=== PATIENT | female | born 1960 | race Caucasian/White ===

== ENCOUNTER → 2018-10-23 | Day surgery (SDC) | payer OTHER ==
[~2018-10-23] MED LIST: COREG3.125 MG PO; ESTRADIOL1 MG PO; FENTANYL CITRATE/PF 100MCG/2 ML INJ ONE; GABAPENTIN400 MG PO; HYOSCYAMINE SULFATE 0.5 MG/ML INJ ONE; LIDOCAINE HCL 2% LOCAL INJ 5 ML SDV VIAL INJ ONE; METOCLOPRAMIDE HCL 10 MG/2ML VIAL ONE; MIDAZOLAM HCL 2 MG/2 ML VIAL ONE; PRILOSEC40 MG PO; PROPOFOL IV EMULSION 10 MG/ML 50 ML VIAL ONE; XANAX0.5 MG PO
--- OUTSIDE RECORDS SUMMARY | 2018-10-23 06:13 | XMS REPORT | Clinical Summary ---
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 Pt is not allergic to latex Other Itching Low 05/29/2018 Abdominal pain and skin itch Sulfanilamide Itching High Medications End Date Status Medication Sig Dispensed Refills Start Date Active estradiol (ESTRACE) 1 MG Take 1 mg by 7 tablet mouth once 7 daily. Active HYDROcodone-acetaminophen 0 (NORCO) 10-325 mg per 8 tablet Active carvedilol (COREG) 6.25 TAKE 1 TABLET 180 tablet 2 201 MG tablet BY MOUTH 9 TWICE A DAY WITH FOOD Active gabapentin (NEURONTIN) TAKE 1 90 capsule 1 100 mg capsule CAPSULE BY 9 MOUTH THREE TIMES A DAY 02/07/2018 Discontinued carvedilol (COREG) 6.25 TAKE 1 TABLET 180 tablet 3 MG tablet (6.25MG) BY [address] 2 TIMES EVERY DAY WITH FOOD 05/08/2018 Discontinued carvedilol (COREG) 6.25 TAKE 1 TABLET 180 tablet 0 201 MG tablet BY MOUTH 8 TWICE A DAY WITH FOOD 08/03/2018 Discontinued carvedilol (COREG) 6.25 TAKE 1 TABLET 180 tablet 0 MG tablet BY MOUTH 8 TWICE A DAY WITH FOOD 05/29/2018 Discontinued acetaminophen-codeine Take 1-2 30 tablet 0 (TYLENOL WITH CODEINE #3) tablets by 8 300-30 mg per mouth every 4 tabletIndications: SLAP (four) hours lesion, type II, right, as needed for initial encounter, moderate pain Rotator cuff tendinitis, for up to 5 right days. 09/24/2018 Discontinued gabapentin (NEURONTIN) Take 1 90 capsule 1 100 mg capsule capsule (100 9 mg total) by mouth 3 (three) times a day. Active Problems Problem Noted Date Tendinitis of right shoulder 05/29/2018 Overview: Added automatically from request for surgery [id number] Superior glenoid labrum lesion of right shoulder 05/29/2018 Overview: Added automatically from request for surgery [id number] Encounters Care Team Description Date Type Specialty Iraj Chopra MD Partial tear of right rotator cuff (Primary Dx); Biceps tendinitis of right shoulder 09/30/2018 Office Visit Orthopedic Surgery Iraj Chopra MD 09/24/2018 Refill Orthopedic Surgery Amber Mahoney MA 09/22/2018 Telephone Orthopedic Surgery Iraj Chopra MD Partial tear of right rotator cuff (Primary Dx); Anterior capsular instability of right shoulder; History of repair of right rotator cuff 09/18/2018 Office Visit Orthopedic Surgery Iraj Chopra MD Partial tear of right rotator cuff (Primary Dx); Anterior capsular instability of right shoulder; SLAP lesion, type II, right, subsequent encounter 08/28/2018 Office Visit Orthopedic Surgery Farhat Lawson MD Med Refill 08/03/2018 Refill Cardiology Iraj Chopra MD Partial tear of right rotator cuff (Primary Dx); Anterior capsular instability of right shoulder; SLAP lesion, type II, right, subsequent encounter; Cervical arthritis 07/31/2018 Office Visit Orthopedic Surgery Iraj Chopra MD Partial tear of right rotator cuff (Primary Dx); Anterior capsular instability of right shoulder 07/03/2018 Office Visit Orthopedic Surgery Farhat Lawson MD Paroxysmal VT (HCC) (Primary Dx); Premature ventricular beats; Syncope, unspecified syncope type; Mitral valve prolapse 06/06/2018 Office Visit Cardiology Iraj Chopra MD Partial tear of right rotator cuff (Primary Dx); Anterior capsular instability of right shoulder 06/05/2018 Office Visit Orthopedic Surgery Milly Hirsch MA 06/05/2018 Orders Only Cardiology Silviano Pina MD PhD Palpitations (Primary Dx); Syncope, unspecified syncope type 06/04/2018 Office Visit Cardiology Adrianna Orellana RN 06/03/2018 Telephone Anesthesiology Carolina Rojas FNP 06/02/2018 Anesthesia General Surgery Event Iraj Chopra MD Right arthroscopic anterior capsular plication, posterior, subacromial decompression, rotator cuff repair. 06/02/2018 Surgery General Surgery Iraj Chopra MD 06/02/2018 Hospital General Surgery Encounter Iraj Chopra MD Preop testing (Primary Dx) 05/29/2018 Pre-Admit Pre-Admission Testing Testing Appointment Iraj Chopra MD SLAP lesion, type II, right, initial encounter (Primary Dx); Rotator cuff tendinitis, right 05/29/2018 Office Visit Orthopedic Surgery Iraj Chopra MD Tendinitis of right shoulder (Primary Dx); Superior glenoid labrum lesion of right shoulder, initial encounter 05/29/2018 Transcribe Orthopedic Surgery Orders Alan Saravia MD 05/28/2018 Orders Only Cardiology Ruby Mcclain RN Med Refill 05/27/2018 Refill Cardiology Ruby Mcclain RN Paroxysmal atrial fibrillation (HCC) (Primary Dx) 05/26/2018 Orders Only Cardiology Nayan Weber MA Results (Event Monitor) 05/09/2018 Telephone Cardiology Farhat Lawson MD Med Refill 05/08/2018 Refill Cardiology Iraj Chopra MD Acute pain of right shoulder (Primary Dx); Impingement syndrome of right shoulder; Complete tear of right rotator cuff 04/29/2018 Office Visit Orthopedic Surgery Farhat Lawson MD Essential hypertension (Primary Dx); Mitral valve prolapse; Family history of premature CAD; H/O syncope; PVC (premature ventricular contraction) 02/14/2018 Office Visit Cardiology Farhat Lawson MD Med Refill 02/07/2018 Refill Cardiology after 10/22/2017 Family History Medical History Relation Name Comments CABG/Stent Brother CABG/Stent Father Diabetes Father Heart attack Father Hypertension Father Diabetes Mother Hypertension Mother Relation Name Status Comments Brother Alive Father Mother Alive Social History Date Tobacco Use Types Packs/Day Years Used Never Smoker Smokeless Tobacco: Never Used Alcohol Use Drinks/Week oz/Week Comments No Sex Assigned at Date Recorded Not on file Industry Job Start Date Occupation Not on file Not on file Not on file Travel End Travel History Travel Start No recent travel history available. Last Filed Vital Signs Time Taken Vital Sign Reading 06/06/2018 3:10 PM [employer]PER[employer]OR [employer] Blood Pressure 125/58 06/06/2018 3:10 PM [employer]PER[employer]ER Pulse 63 06/02/2018 12:53 PM SUPERVISOR [employer]OSPHATIC FERTILIZER Temperature 36.3 C (97.4 F) 06/02/2018 1:30 PM SUPERVISOR [employer]OS[employer]IC [employer]ILIZER Respiratory Rate 14 06/02/2018 1:30 PM SUPERVISOR [employer]OSPHATIC FERTILIZER Oxygen Saturation 98% - Inhaled Oxygen - Concentration 09/18/2018 8:53 AM SUPERVISOR [employer]OS[employer]IL[employer]ER Weight 70.3 kg (155 lb) 09/18/2018 8:53 AM SUPERVISOR [employer]OS[employer]ERTIL[employer]ER Height 167.6 cm (5' 6") 09/18/2018 8:53 AM SUPERVISOR [employer]OSPHATIC [employer]ILIZER Body Mass Index 25.02 Plan of Treatment Care Team Description [place] [address] [place] [address] [phone] 10/29/2018 Office Visit Orthopedic Surgery Silviano Pina MD PhD [address] [address] 11/05/2018 Office Visit Cardiology Health Maintenance Due Date Last Done Comments CERVICAL CANCER SCREENING 1980 BREAST CANCER SCREENING 2009 COLON CANCER SCREENING 2009 SHINGLES VACCINES (#1) 2009 INFLUENZA VACCINE 02/19/2019 05/05/2017 Implants Device Identifier Shelf Expiration Date Model / Serial / Lot Implanted Type Area Manufactur er 06/20/2019 AR [id number] / / [id number] [place] [employer] Biocmpst W/ Sz Orthopedic Right: Shoulder ARTHREX 2 Tgrtl 3x14.5mm - [id number] [employer] Implanted: 06/02/2018 (Quantity not Implants on file) 11/19/2019 AR [id number] / / [id number] [place] [employer]kscrew Ft Biocmpst W/ Orthopedic Right: Shoulder ARTHREX Two Sz 2 Tgrtl 5.5x15mm - [employer] [id number] Implants Implanted: 06/02/2018 (Quantity not on file) [id number] / / 4mm X 135mm [place] 90-S Cruise Suction/Ir Right: Shoulder GENE Suction Probe rigation ENDOSCOPY Implanted: Qty: 1 on 06/02/2018 by Iraj Chopra MD Procedures Comments Procedure Name Priority Date/Time Associated Diagnosis NH INJECT TENDON Routine 09/30/2018 Biceps tendinitis of ORIGIN/INSERT 3:00 PM CDT right shoulder NH ARTHROCENTESIS Routine 09/30/2018 Partial tear of right ASPIR&/INJ MAJOR JT/BURSA 3:00 PM CDT rotator cuff W/O US NH AN ELECTIVE Routine 06/02/2018 ENDOTRACHEAL AIRWAY 10:12 AM SUPERVISOR [employer]ER Procedure Note - Leonardo Malone CRNA - 06/02/2018 10:12 AM SUPERVISOR [employer]IL[employer]ER Airway Date/Time: 06/02/2018 9:56 AM Performed by: Leonardo Malone CRNA Authorized by: Watson Philip MD Location: OR Urgency: Elective Difficult Airway: No Anesthesio logist: Watson Philip MD Resident/C RNA/AA: Leonardo Malone CRNA Performed by: anesthesio logist and resident/C RNA/AA Preoxygena nik with 100% O2: Yes Mask Ventilatio n: Easy mask Final Airway Type: Endotrache al airway Final Endotrache al Airway: ETT Cuffed: Yes Technique Used: Direct laryngosco py Blade Type: Bob Laryngosco pe Blade/Vide olaryngosc ope Blade Size: 2 ETT Size (mm): 7.0 Cuff at minimum occlusion pressure: Yes Measured from: Lips ETT to Lips (cm): 22 Placement Verified by: CO2 detection and direct visualizat ion Laryngosco pic view: Grade I - full view of glottis Rapid Sequence Induction (RSI): No Modified RSI: No Number of Attempts at Approach: 1 NH AN PERIPHERAL BLOCK Routine 06/02/2018 POST-OP PAIN 9:03 AM SUPERVISOR [employer]OS[employer]ER Procedure Note - Watson Philip MD - 06/02/2018 9:03 AM SUPERVISOR [employer]OS[employer]IL[employer]ER Peripheral Block Performed by: Watson Philip MD Authorized by: Watson Philip MD Patient Location: Block room Start Time: 06/02/2018 8:55 AM End Time: 06/02/2018 9:03 AM Reason for Block: at surgeon's request, post-op pain management Staff: Nedra linarest: Watson Philip MD Performed by: Anesthesio llii Preprocedu re: patient identified , IV checked, site and side verified, risks and benefits discussed, procedure verified, surgical consent complete, patient position confirmed, monitors and equipment checked, pre-op evaluation complete and site marked Time Out Performed: 8 8:55 AM Peripheral Nerve Block: Patient Position: Supine and pertinent anatomy defined Prep: ChloraPrep Monitoring : Blood pressure monitoring , continuous pulse oximetry and heart rate Block Type: Interscale ne Laterality : Right Injection Technique: Catheter insertion Procedures : ultrasound guided Ultrasound documentat ion: Printed/pl aced in chart and still images obtained Local Infiltrati on (See MAR for details): Ropivacain e Loss of Twitch: 0.5 mA Needle: Needle Type: Pajunk Needle Gauge: 19 G Needle Length: 10 cm Catheter size: 20g. Assessment : Injection Assessment : Visualized needle/loc al anesthetic surroundin g nerve, visualized pertinent vascular structures and nerves, needle tip visualized at all times during injection of medication , intermitte nt aspiration during local anesthetic administra tion and no symptoms of intraneura l/intraven ous injection Heart Rate Change: No Slow Fractionat ed Injection: Yes Block outcome: No apparent complicati ons, patient comfortabl e and patient tolerated procedure well POC GLUCOSE Routine 06/02/2018 8:32 AM SUPERVISOR [employer]OSPHATIC F[employer]ILIZER ESTIMATED GFR Routine 05/29/2018 1:40 PM SUPERVISOR [employer]OS[employer]IC [employer]IL[employer]ER BASIC METABOLIC PANEL Routine 05/29/2018 Preop testing 1:40 PM SUPERVISOR PHOSPHATIC F[employer]IL[employer]ER HC COMPLETE BLD COUNT Routine 05/29/2018 Preop testing W/AUTO DIFF 1:40 PM SUPERVISOR [employer]OS[employer]IC [employer]IL[employer]ER ECG PRE/POST OP Routine 05/29/2018 Preop testing 1:36 PM SUPERVISOR [employer]OSPHATIC F[employer]ILIZER XR SHOULDER 2+ VW RIGHT Routine 04/29/2018 Acute pain of right 1:19 PM CDT shoulder NH ARTHROCENTESIS Routine 04/29/2018 Impingement syndrome of ASPIR&/INJ MAJOR JT/BURSA 1:00 PM CDT right shoulder W/O US Complete tear of right rotator cuff ECHOCARDIOGRAM 2D Routine 02/21/2018 Mitral valve prolapse COMPLETE W MMODE SPECTRAL 1:49 PM CDT H/O syncope COLOR DOPPLER (69687) ECG 12-LEAD Routine 02/14/2018 Essential hypertension 12:38 PM CDT after 10/22/2017 Results * Large Joint Arthrocentesis: shoulder, R subacromial bursa (09/30/2018 3:00 PM CDT) Narrative Performed At Iraj Chopra MD 09/30/20186:24 PM Large Joint Arthrocentesis: shoulder, R subacromial bursa Consent given by: patient Site marked: site marked Timeout: Immediately prior to procedure a time out was called to verify the correct patient, procedure, equipment, support assistant and site/side marked as required Supporting Documentation Indications: pain Procedure Details Preparation: Patient was prepped and draped in the usual sterile fashion Ultrasound guided: no Location: shoulder - R subacromial bursa Right side: Needle size: 22 G Approach: posterior Right shoulder medications administered: 5 mL lidocaine 10 mg/mL (1 %); 80 mg methylPREDNISolone acetate 40 mg/mL Patient tolerance: patient tolerated the procedure well with no immediate complications * Injection tendon or ligament: shoulder, R biceps (09/30/2018 3:00 PM CDT) Narrative Performed At Iraj Chopra MD 09/30/20186:24 PM Injection tendon or ligament: shoulder, R biceps Date/Time: 09/30/2018 3:59 PM Performed by: Iraj Chopra MD Authorized by: Iraj Chopra MD Consent: Consent obtained:Verbal Consent given by:Patient Risks discussed:Bleeding, infection, nerve damage and pain Alternatives discussed:Alternative treatment Pre-procedure details: Preparation: Patient was prepped and draped in usual sterile fashion Procedure details: Type of injection:Tendon origin Location:Shoulder Shoulder location:R biceps Right side: Needle size: 24 G Right shoulder medications administered: 2 mL lidocaine 10 mg/mL (1 %); 40 mg methylPREDNISolone acetate 40 mg/mL Post-procedure details: Patient tolerance of procedure:Tolerated well, no immediate complications * POC glucose (06/02/2018 8:32 AM SUPERVISOR PHOSPHATIC F[employer]ILIZER) POC glucose 102 (H) 65 - 99 mg/dL [facility] Comment: [facility] RN Notified Meter ID: [id number] Machinist Apprentice Wood: Claudia Ruiz Performing Organization Address City/[facility]/Zipcode Phone Number [facility] [place] [address] [place] [address] PATHOLOGY AND GENOMIC MEDICINE [address] * Estimated GFR (05/29/2018 1:40 PM SUPERVISOR PHOSPHATIC FERTILIZER) Estimated GFR >=90 mL/min/1.[address] [facility] OF Comment: PATHOLOGY AND CatergoryUnitsInte GENOMIC MEDICINE rpretation G1 >=90 Normal or high G2 60-89Mildly decreased [id number] Mildly to moderately decreased O9s56-90 Moderately to severely decreased G4 15-29Severely decreased G5 <15Kidney failure The eGFR was calculated using the Chronic Kidney Disease Epidemiology Collaboration (CKD-EPI) equation. Interpretation is based on recommendations of the National Kidney Foundation-Kidney Disease Outcomes Quality Initiative (NKF-KDOQI) published in 2014. Specimen Plasma specimen Performing Organization Address City/State/Zipcode Phone Number [facility] [phone] [place] [address] PATHOLOGY AND GENOMIC MEDICINE * CBC with platelet and differential (05/29/2018 1:40 PM SUPERVISOR PHOSPHATIC FERTILIZER) WBC 4.6 4.5 - 11.0 k/uL [facility] OF PATHOLOGY AND GENOMIC MEDICINE RBC 4.03 (L) 4.20 - 5.50 m/uL [facility] OF PATHOLOGY AND GENOMIC MEDICINE HGB 12.2 12.0 - 16.0 g/dL [facility] OF PATHOLOGY AND GENOMIC MEDICINE HCT 38.1 37.0 - 47.0 % [facility] OF PATHOLOGY AND GENOMIC MEDICINE MCV 94.5 82.0 - 100.[address] [facility] OF PATHOLOGY AND GENOMIC MEDICINE MCH 30.3 27.0 - 34.[address] [facility] OF PATHOLOGY AND GENOMIC MEDICINE MCHC 32.0 31.0 - 37.0 g/dL [facility] OF PATHOLOGY AND GENOMIC MEDICINE RDW - SD 43.4 37.0 - 55.[address] [facility] OF PATHOLOGY AND GENOMIC MEDICINE MPV 10.8 6.9 - 11.[address] [facility] OF PATHOLOGY AND GENOMIC MEDICINE Platelet count 197 150 - 400 K/uL [facility] OF PATHOLOGY AND GENOMIC MEDICINE Nucleated RBC 0.00 /[address] [facility] OF PATHOLOGY AND GENOMIC MEDICINE Neutrophils 55.9 39.0 - 69.0 % [facility] OF PATHOLOGY AND GENOMIC MEDICINE Lymphocytes 33.3 25.0 - 45.0 % [facility] OF PATHOLOGY AND GENOMIC MEDICINE Monocytes 8.6 0.0 - 10.0 % [facility] OF PATHOLOGY AND GENOMIC MEDICINE Eosinophils 1.3 0.0 - 5.0 % [facility] OF PATHOLOGY AND GENOMIC MEDICINE Basophils 0.7 0.0 - 1.0 % [facility] OF PATHOLOGY AND GENOMIC MEDICINE Immature granulocytes 0.2 0.0 - 1.0 % [facility] OF PATHOLOGY AND GENOMIC MEDICINE Specimen Blood Performing Organization Address City/[facility] [place] [address] PATHOLOGY AND GENOMIC MEDICINE * Basic metabolic panel (05/29/2018 1:40 PM SUPERVISOR PHOSPHATIC FERTILIZER) Sodium 142 135 - 148 mEq/L [facility] OF PATHOLOGY AND GENOMIC MEDICINE Potassium 4.0 3.5 - 5.0 mEq/L [facility] OF PATHOLOGY AND GENOMIC MEDICINE Chloride 104 98 - 112 mEq/L [facility] OF PATHOLOGY AND GENOMIC MEDICINE CO2 29 24 - 31 mEq/L [facility] OF PATHOLOGY AND GENOMIC MEDICINE Anion gap 9@ANIO 7 - 15 mEq/L [facility] OF PATHOLOGY AND GENOMIC MEDICINE BUN 11 6 - 20 mg/dL [facility] OF PATHOLOGY AND GENOMIC MEDICINE Creatinine 0.60 0.50 - 0.90 mg/dL [facility] OF PATHOLOGY AND GENOMIC MEDICINE Glucose 93 65 - 99 mg/dL [facility] OF PATHOLOGY AND GENOMIC MEDICINE Calcium 9.1 8.3 - 10.2 mg/dL [facility] OF PATHOLOGY AND GENOMIC MEDICINE Specimen Plasma specimen Performing Organization Address City/[facility] [place]erc[place] [address] PATHOLOGY AND GENOMIC MEDICINE * ECG Pre/Post Op (05/29/2018 1:36 PM SUPERVISOR PHOSPHATIC FERTILIZER) Ventricular rate 52 [facility] Atrial rate 52 [facility] NH interval 154 [facility] QRSD interval 92 [facility] QT interval 454 [facility] QTC interval 422 [facility] P axis 1 61 [facility] QRS axis 1 40 [facility] T wave axis 17 [facility] EKG impression Sinus bradycardia-Possible [facility] Anterior infarct , age undetermined-Abnormal ECG-In automated comparison with ECG of 14-FEB-2018 12:38,-aberrant conduction is no longer present-Nonspecific T wave abnormality now evident in Anterior leads- Performing Organization Address City/[facility]/Zipcode Phone Number [facility] [address] [place] [address] * XR Shoulder 2+ Vw Right (04/29/2018 1:19 PM CDT) Narrative Performed At [facility] X-rays 2 views of the right shoulder show no acute bony injury. Performing Organization Address [facility] Phone Number [facility] [address] [place] [address] * Large Joint Arthrocentesis (04/29/2018 1:00 PM CDT) Narrative Performed At Iraj Chopra MD 04/29/20185:52 PM Large Joint Arthrocentesis Consent given by: patient Site marked: site marked Timeout: Immediately prior to procedure a time out was called to verify the correct patient, procedure, equipment, support assistant and site/side marked as required Supporting Documentation Indications: pain Procedure Details Preparation: Patient was prepped and draped in the usual sterile fashion Ultrasound guided: no Location: shoulder - R subacromial bursa Right side: Needle size: 22 G Approach: posterior Right shoulder medications administered: 5 mL lidocaine 10 mg/mL (1 %); 80 mg methylPREDNISolone acetate 40 mg/mL Patient tolerance: patient tolerated the procedure well with no immediate complications * Echocardiogram complete w contrast and 3D if needed (02/21/2018 1:49 PM CDT) Narrative Performed At [facility] Echocardiography Report Pat.Name:GIULIANA BAKER Pat.ID:[id number] .Date: 02/21/2018Refer.MD:FARHAT LAWSON MD Exam Time: 2:08:00 PMStudy Type:Routine Echo Height:66inWeight:144lb BSA: 1.74 m2 DOBAge:1960,57Y Sex: FEMALEBP:115/60 HR:58 bpmSonogrphr: Amado Hampton RDCS Pat. Stat.:OutpatientRoom:[place] [address] Study Status:Final Echo Event ID:[id number] Order ID:[id number] Reason for Study:Mitral Valve Prolapse History / Clinical:Chest Pain Unspecified, Mitral Valve Prolapse Procedures:2D Echo, Colorflow Doppler Race:C SUMMARY: LV EF is normal. Estimated EF is 60-64%. Biplane LVEF=appx 61%. RV systolic function is normal. Bileaflet mitral valve prolapse noted. Mild mitral regurgitation. FINDINGS: LV: LV size is mildly enlarged. Overall wall motion is normal. EstimatedEF is 60-64%. Biplane LVEF=appx 61%. LV EF is normal. RV: RV size is normal. RV systolic function is normal. LA: LA volume is severely enlarged. RA: RA size is normal. AO: Aortic root diameter is normal. DOMINGA: No pericardial effusion. IAS:Interatrial septum is significantly aneurysmal and bows towardsthe right atrium. AV: No structural AV abnormalities noted. Mild aortic regurgitation. MV: Mild thickening of mitral leaflets. The valve appears myxomatous.Bileaflet prolapse noted. Late systolic mild mitralregurgitation. Eccentric/ posteriorly directed jet. PV: Pulmonic valve not well seen. TV: No structural TV abnormalities noted. Mild tricuspid regurgitation Larose: LV relaxation is impaired. LV filling pressure is normal. Other:Estimated PA systolic pressure is appx 25-30 mmHg, assuming amean RAP of 0-5 mmHg. MEASUREMENTS: 2D Parasternal [place] LVOT 1.9 cmLA Ds3.8 cm LVIDd5.7 cmIndex3.3 cm/m Ao An2 cm LVIDs4.4 cmAo Rtd 2.7 cm Index1.5 cm/m LV%fs 22.8 % LV Hzqp236.3 g(87-129) IVSd 0.6 cmLVM Index 82.9 g/m2 LVPWd0.8 cmRWT0.3 LV EF Biplane ZIAND479 ml (59-136) Index60.4 ml/m LV SV 64.3 ml LVESV 40.7 zgHrjfd94.4 ml/m LV EF 61.2 %(55-75) LA Sng Plane LA Area 33 cm2(8.8-23.4) LA Vol 131.3 ml Index75.4 ml/m LA LngAx 6.9 cm RA Sng Plane RA Area 13.9 cm2(8.3-19.5) RA Vol31.4 ml Index18.1 ml/m RA LngAx 5.4 cm DOPPLER LVOT Stroke Vol LVOT 1.9 cmLVOT CO4.4 l/min LVOT TVI20.9 cmLVOT CI2.5 l/m/m2 LVOT Tm389 pyscFS00 bpm LVOT SV 59.3 ml AV Pressure Half Time AV P1/2t 598 msec MV E/A Ratio MV pkE50.3 cm/s (60-130) MV E/A 0.5 MV pkA95.9 cm/s Left Ventricle LaLat Em 3.6 cm/s LV Diastology E/Em Ratio LaLat E/Em12.2 TV Pressure Gradient TV PkVel 251.9 cm/sTV PG 25.4 mmHg Signed 02/21/2018 06:24 PM Rebeca Spivey MD Procedure Note Interface, Radiology Results In - 02/21/2018 6:25 PM CDT [facility] Echocardiography Report Pat.Name: GIULIANA BAKER Pat.ID: [id number] St.Date: 02/21/2018 Refer.MD: FARHAT LAWSON MD Exam Time: 2:08:00 PM Study Type:Routine Echo Height: 66in Weight: 144lb BSA: 1.74 m2 Age: 10 1960,57Y Sex: FEMALE BP: 115/60 HR: 58 bpm Sonogrphr: Amado Hampton CAITLYN Pat. Stat.:Outpatient Room: [place] [address] Study Status:Final Echo Event ID:[id number] Order ID: [id number] Reason for Study:Mitral Valve Prolapse History / Clinical:Chest Pain Unspecified, Mitral Valve Prolapse Procedures:2D Echo, Colorflow Doppler Race: C SUMMARY: LV EF is normal. Estimated EF is 60-64%. Biplane LVEF=appx 61%. RV systolic function is normal. Bileaflet mitral valve prolapse noted. Mild mitral regurgitation. FINDINGS: LV: LV size is mildly enlarged. Overall wall motion is normal. Estimated EF is 60-64%. Biplane LVEF=appx 61%. LV EF is normal. RV: RV size is normal. RV systolic function is normal. LA: LA volume is severely enlarged. RA: RA size is normal. AO: Aortic root diameter is normal. DOMINGA: No pericardial effusion. IAS: Interatrial septum is significantly aneurysmal and bows towards the right atrium. AV: No structural AV abnormalities noted. Mild aortic regurgitation. MV: Mild thickening of mitral leaflets. The valve appears myxomatous. Bileaflet prolapse noted. Late systolic mild mitral regurgitation. Eccentric/ posteriorly directed jet. PV: Pulmonic valve not well seen. TV: No structural TV abnormalities noted. Mild tricuspid regurgitation Larose: LV relaxation is impaired. LV filling pressure is normal. Other: Estimated PA systolic pressure is appx 25-30 mmHg, assuming a mean RAP of 0-5 mmHg. MEASUREMENTS: 2D Parasternal [place] LVOT 1.9 cm LA Ds 3.8 cm LVIDd 5.7 cm Index 3.3 cm/m Ao An 2 cm LVIDs 4.4 cm Ao Rtd 2.7 cm Index 1.5 cm/m LV%fs 22.8 % LV Mass 144.3 g (87-129) IVSd 0.6 cm LVM Index 82.9 g/m2 LVPWd 0.8 cm RWT 0.3 LV EF Biplane LVEDV 105 ml (59-136) Index 60.4 ml/m LV SV 64.3 ml LVESV 40.7 ml Index 23.4 ml/m LV EF 61.2 % (55-75) LA Sng Plane LA Area 33 cm2 (8.8-23.4) LA Vol 131.3 ml Index 75.4 ml/m LA LngAx 6.9 cm RA Sng Plane RA Area 13.9 cm2 (8.3-19.5) RA Vol 31.4 ml Index 18.1 ml/m RA LngAx 5.4 cm DOPPLER LVOT Stroke Vol LVOT 1.9 cm LVOT CO 4.4 l/min LVOT TVI 20.9 cm LVOT CI 2.5 l/m/m2 LVOT Tm 389 msec HR 74 bpm LVOT SV 59.3 ml AV Pressure Half Time AV P1/2t 598 msec MV E/A Ratio MV pkE 50.3 cm/s (60-130) MV E/A 0.5 MV pkA 95.9 cm/s Left Ventricle LaLat Em 3.6 cm/s LV Diastology E/Em Ratio LaLat E/Em 12.2 TV Pressure Gradient TV PkVel 251.9 cm/s TV PG 25.4 mmHg Signed 02/21/2018 06:24 PM Rebeca Spivey MD Performing Organization Address City/State/Zipcode Phone Number FARHANA SANTOSID [phone] [place] [address] * ECG 12 lead (02/14/2018 12:38 PM CDT) Ventricular rate 57 [facility] Atrial rate 57 [facility] NH interval 154 [facility] QRSD interval 96 [facility] QT interval 444 [facility] QTC interval 432 [facility] P axis 1 69 [facility] QRS axis 1 71 [facility] T wave axis 56 [facility] MUSE EKG impression Sinus bradycardia with [facility] premature atrial complexes with aberrant conduction-Incomplete right bundle branch block-Borderline ECG-In automated comparison with ECG of 14-FEB-2018 12:38,-aberrant conduction is now present- Performing Organization Address City/State/Zipcode Phone Number Jomar SIMON [address] [place] [address] after 10/22/2017 Insurance Payer Benefit Subscriber ID Type Phone Address Plan / Group [facility] UMR xxxxxxxxxxxx PPO [facility] [employer] CHOICE NTWK Advance Directives Patient has advance care planning documents on file. For more information, chinedu tolbert contact: Jack Lowery [address] [place] [address]
--- OUTSIDE RECORDS SUMMARY | 2018-10-23 06:13 | XMS REPORT ---
Author Author [facility] Address Unknown Phone Unavailable Care Team Providers Care Engineering Program Analyst Name Role Phone DR SUSAN ROA Unavailable Unavailable Problems This patient has no known problems. Allergies, Adverse Reactions, Alerts This patient has no known allergies or adverse reactions. Medications This patient has no known medications. Results Test Description Test Time Test Comments Text Results Atomic Results Result Comments XR SPINE LUMBAR AP & LAT*HSE* 2016-11-14 14:37:45 FluoroscopyLocation Code: [id number] HISTORY: Back painComments: Fluoroscopy was provided during multilevel lumbar facet injections.Approximately fluoroscopy time was 23.0 seconds. 4 images were obtained.IMPRESSION: Fluoroscopy services provided. Please see operative report for fulldetails. PROTHROMBIN TIME 2016-11-14 13:08:00 PT (test code=TT) 11.0 s 9.8-13.6 INR (test code=INR) 1.0 INRH (test code=INRH) SUGGESTED THERAPEUTIC RANGE FOR INR: 2.5 - 3.5 For Patients with Prosthetic Valves or Patients with recurrent Thromboembolic Events 2.0 - 3.0 For Most Other Applications PTT (PARTIAL THROMBOPLASTIN TIME)2016-11-14 13:08:00* Test Item Value Reference Range Comments PTT (test code=PTT) 29.6 s 20.2-38.0 PTTH (test code=PTTH) To monitor the effectiveness of heparin, we offer the Anti-Xa (Heparin Assay). It can be used for either unfractinated or LMW Heparin. Order Code is ANTI-XA [id number] 12:50:00* Test Item Value Reference Range Comments COLOR (test code=COLU) YELLOW YELLOW CLARITY (test code=CLA) CLEAR CLEAR GLUCOSE UR (test code=UA GLUCOSE) NEGATIVE NEGATIVE BILI UR (test code=BILE) NEGATIVE NEGATIVE KETONES UR (test code=LUIS) NEGATIVE NEGATIVE SP GRAVITY (test code=SPGR) 1.019 1.005-1.030 PH UR (test code=PH) 6.0 4.5-8.0 PROTEIN UR (test code=PU) NEGATIVE NEGATIVE UROBIL UR (test code=UROQ) 0.2 EU/dL 0.2-1.0 NITRITE UR (test code=NITRITE) NEGATIVE NEGATIVE BLOOD UR (test code=UA BLOOD) NEGATIVE NEGATIVE LEUK ES UR (test code=LEUK) NEGATIVE NEGATIVE CBC (INCLUDES AUTOMATED DIFFERENTIAL) *2016-11-14 12:19:00* Test Item Value Reference Range Comments WBC (test code=WBC) 4.7 10\S\3/uL 4.5-11.0 RBC (test code=RBC) 4.06 10\S\6/uL 4.20-5.60 HGB (test code=HBG) 12.4 g/dL 12.0-15.5 HCT (test code=HCT) 37.0 % 35.0-44.0 MCV (test code=MCV) 91.1 fL 81.0-99.0 MCH (test code=MCH) 30.5 pg 27.0-31.0 MCHC (test code=MCHC) 33.5 g/dL 32.0-36.0 RDW (test code=RDW) 12.3 % 11.5-14.5 PLT (test code=PLT) 149 10\S\3/uL 130-400 MPV (test code=MPV) 8.6 fL 9.4-12.4 NEUTROP # (test code=NE#) 2.4 10\S\3/uL 1.6-8.0 LYMPH # (test code=LY#) 1.6 10\S\3/uL 1.1-3.5 MID # (test code=GMID#) 0.5 10\S\3/uL 0.0-1.1 GRA % (test code=GRA%) 54.1 % 35.0-73.0 LYMPH % (test code=GLY%) 34.9 % 20.0-55.0 MID % (test code=GMID%) 0.5 % 0.0-10.0 CHEM8+ i-STAT HSE2016-11-14 12:05:00* Test Item Value Reference Range Comments SODIUM (test code=URIEL) 144 mmol/L 138-146 POTASSIUM (test code=KI) 4.1 mmol/L 3.5-4.9 CHLORIDE (test code=CLI) 103 mmol/L 98-109 CA IONIZED (test code=ICAI) 1.23 mmol/L 1.12-1.32 GLUCOSE (test code=GLUI) 78 mg/dL 75-100 TCO2 (test code=TCO2) 30 mmol/L 24-29 BUN (test code=BUN1) 13 mg/dL 8-26 CREATININE (test code=CREAI) 0.6 mg/dL 0.6-1.3 ANION GAP (test code=GANG) 16.0 mmol/L
[2018-10-23 09:18] VITALS: BP 137/79
[2018-10-23 10:04] LABS: WBC,FECAL (FECAL LACTOFERRIN) NEGATIVE (NEGATIVE)
[2018-10-23 10:05] LABS: C DIFFICILE TOXIN A&B AMP PROB NEGATIVE (NEGATIVE)
--- NOTE | 2018-10-23 11:09 | Operative Report ---
DATE OF PROCEDURE: 10/23/2018 SURGEON: Loi Yen MD PROCEDURES: Esophagogastroduodenoscopy with biopsies and colonoscopy with polypectomy and biopsies. INDICATIONS FOR EGD: History of heartburn, indigestion, bloating. INDICATIONS FOR COLONOSCOPY: Lower abdominal pain, diarrhea, personal history of colon polyps. MEDICATIONS: The patient was done under MAC, please see anesthesiologist's note. PROCEDURE IN DETAIL: With the patient in left lateral decubitus position, flexible fiberoptic Olympus gastroscope was introduced into the esophagus under direct visualization without any difficulty. There was some patchy erythema noted in distal esophagus. The GE junction was nodular and that was biopsied. The scope was then advanced with ease into her stomach. Mucosa overlying the antrum and the body revealed some patchy erythema and low-grade to moderate edema and biopsies were obtained, sent to stain for H pylori. The pylorus was of normal contour and shape, it was intubated with ease and the scope was advanced all the way to the second portion of the duodenum. Biopsies were obtained from the proximal second portion and duodenal bulb to rule out sprue. The scope was then withdrawn back into the stomach and retroflexed and mucosa overlying the fundus and cardia appeared to be within normal limits. The scope was then straightened out, it was subsequently withdrawn. The patient tolerated the procedure well. IMPRESSION: 1. Distal esophagitis, mild. 2. GE junction somewhat nodular, biopsied. 3. Gastritis, biopsied. Biopsies sent to stain for Helicobacter pylori. 4. Rule out sprue. PLAN: Follow up histology. Initiate Protonix 40 mg one p.o. q.a.m. a.c. PROCEDURE IN DETAIL: The patient was then turned around after adequate lubrication of the anal canal, a flexible fiberoptic Olympus colonoscope was inserted into the rectum with ease and advanced all the way to the cecum. Mucosa overlying the cecum appeared to be within normal limits. The ileocecal valve was intubated and the scope was advanced into the terminal ileum. Biopsies were obtained. The scope was then withdrawn back into the colon. It was then withdrawn slowly and a minute polyp was hot biopsied from the proximal ascending colon. There were some patchy areas of erythema and low-grade edema noted pretty much throughout the colon, but probably more prominent on the left side and random biopsies were obtained. Random biopsies were obtained also from the rectum. The scope was then retroflexed into the distal rectum. Small moderate-sized internal hemorrhoids were noted, none of which was actively bleeding. One minute polyp was removed by hot biopsy from the distal rectum. The scope was subsequently withdrawn. The patient tolerated procedure the well. IMPRESSION: 1. Ascending colon polyp, hot biopsied. 2. Mild patchy colitis, biopsies obtained. 3. Proctitis, mild. 4. Rectal polyp, minute, hot biopsied. 5. Internal hemorrhoids, none actively bleeding. PLAN: Follow up histology. Follow up stool studies. Initiate Bentyl 20 mg one p.o. t.i.d. Start Flagyl 500 mg one p.o. q.i.d. x14 days. The patient might benefit from a followup colonoscopy in 3 years. Loi Yen MD [facility] [place] /[id number] cc: Dr. Mima Rowe
== END | disposition home or self-care (01) ==
LOC: OR 06:10
PROVIDERS: ATTEND Internal Medicine Gastroenterology
DX: K29.70 Gastritis, unspecified, without bleeding (principal); K63.5 Polyp of colon; K62.1 Rectal polyp; K52.9 Noninfective gastroenteritis and colitis, unspecified; Q40.8 Other specified congenital malformations of upper alimentary tract; K20.9 Esophagitis, unspecified; K22.8 Other specified diseases of esophagus; K21.9 Gastro-esophageal reflux disease without esophagitis; K62.89 Other specified diseases of anus and rectum; K64.8 Other hemorrhoids; I10 Essential (primary) hypertension; I49.9 Cardiac arrhythmia, unspecified; F32.9 Major depressive disorder, single episode, unspecified; Z88.2 Allergy status to sulfonamides; Z01.810 Encounter for preprocedural cardiovascular examination
CPT/HCPCS: 43239; 45380; 45384; 83630; 83993; 87045; 87177; 87328; 87493; 93005; J1980; J2001; J2250; J2704; J2765; 45378

== ENCOUNTER 2019-05-29 12:28 | Emergency (ER) | payer OTHER ==
[~2019-05-29] VITALS: Ht 165.1 cm; Wt 63.5 kg
[~2019-05-29 12:28] MED LIST changes: -FENTANYL CITRATE/PF 100MCG/2 ML INJ ONE; -HYOSCYAMINE SULFATE 0.5 MG/ML INJ ONE; -LIDOCAINE HCL 2% LOCAL INJ 5 ML SDV VIAL INJ ONE; -METOCLOPRAMIDE HCL 10 MG/2ML VIAL ONE; -MIDAZOLAM HCL 2 MG/2 ML VIAL ONE; -PROPOFOL IV EMULSION 10 MG/ML 50 ML VIAL ONE
--- NOTE | 2019-05-29 13:44 | NUR ---
PT DELAYING ALL CARE. REFUSING ANY FURTHER TESTING UNTIL SHE VERIFIES IF HOSPITAL, DR, LABS, RADIOLOGY, PATHO ALL IN OR OUT OF HER NETWORK. NURSE TALKED WITH BILLING OFFICE WHO STATE PT WILL NEED TO CALL CUSTOMER SERVICE NUMBER OF HER INSURANCE TO VERIFY. PT WILL NOT SIGN ANY PAPERWORK AGREEING TO SERVICE UNTIL VERIFIED.
[2019-05-29 15:07] LABS: BASOPHILS # (AUTO) 0.1 (0.0-0.1); BASOPHILS % 0.8 % (0.0-1.0); EOSINOPHILS # (AUTO) 0.1 (0.0-0.4); EOSINOPHILS % 1.1 % (0.0-6.0); HEMATOCRIT 43.1 % (34.2-44.1); HEMOGLOBIN 13.8 g/dL (12.0-16.0); LYMPHOCYTES # (AUTO) 1.5 (1.0-3.2); MEAN CORPUSCULAR HEMOGLOBIN 29.1 pg (28-32); MEAN CORPUSCULAR VOLUME 90.7 fL (81-99); MONOCYTES # (AUTO) 0.4 (0.2-0.8); MONOCYTES % 6.7 % (4.4-11.3); NEUTROPHILS # (AUTO) 4.4 (2.1-6.9); NEUTROPHILS % 68.1 % (38.7-80.0); PLATELET COUNT 176 x10e3/uL (140-360); RED BLOOD COUNT 4.75 x10e6/uL (3.6-5.1)
[2019-05-29 15:09] LABS: BILIRUBIN,URINE NEGATIVE (NEGATIVE); CLARITY,URINE SL CLOUDY (CLEAR); COLOR,URINE YELLOW (YELLOW); KETONES,URINE NEGATIVE (NEGATIVE); LEUKOCYTE ESTERASE ,URINE NEGATIVE (NEGATIVE); NITRITE,URINE NEGATIVE (NEGATIVE); PROTEIN,URINE DIPSTICK NEGATIVE (NEGATIVE); URINE UROBILINOGEN 0.2 mg/dL (0.2 - 1)
[2019-05-29 15:12] LABS: PREGNANCY TEST, URINE NEGATIVE (NEGATIVE)
[2019-05-29 15:23] LABS: EPITHELIAL CELLS,URINE FEW /LPF
[2019-05-29 15:24] LABS: INR 0.94; PROTHROMBIN TIME 13.1 seconds (11.9-14.5)
[2019-05-29 15:25] LABS: PARTIAL THROMBOPLASTIN TIME 28.6 seconds (23.8-35.5)
[2019-05-29 15:30] LABS: ALANINE AMINOTRANSFERASE 14 IU/L (0-55); ALBUMIN 3.9 g/dL (3.5-5.0); ALBUMIN/GLOBULIN RATIO 1.3 (0.8-2.0); ALKALINE PHOSPHATASE 88 IU/L (40-150); ANION GAP 12.4 mmol/L (8-16); BLOOD UREA NITROGEN 12 mg/dL (7-26); BUN/CREATININE RATIO 16 (6-25); CALCIUM 9.1 mg/dL (8.4-10.2); CARBON DIOXIDE 27 mmol/L (22-29); CHLORIDE 103 mmol/L (98-107); CREATININE, SERUM 0.77 mg/dL (0.57-1.11); EST GLOMERULAR FILTRATION RATE > 60 ML/MIN (60-); GLUCOSE 87 mg/dL (74-118); POTASSIUM 3.4 mmol/L (3.5-5.1); SODIUM 139 mmol/L (136-145)
[2019-05-29 15:31] LABS: AMYLASE 53 U/L (25-125); LIPASE 24 U/L (8-78)
== END 2019-05-29 16:46 | disposition home or self-care (01) ==
LOC: ER 12:34
DX: K92.2 Gastrointestinal hemorrhage, unspecified (principal); R10.811 Right upper quadrant abdominal tenderness; K64.8 Other hemorrhoids; M54.9 Dorsalgia, unspecified; G89.29 Other chronic pain
CPT/HCPCS: 36415; 80053; 81001; 81025; 82150; 82270; 83690; 85025; 85610; 85730; 99284

== ENCOUNTER → 2019-07-01 | Day surgery (SDC) | payer OTHER, MEDICARE ==
[2019-06-24 14:15] LABS: BASOPHILS % 0.6 % (0.0-1.0); EOSINOPHILS # (AUTO) 0.1 (0.0-0.4); EOSINOPHILS % 1.5 % (0.0-6.0); HEMATOCRIT 41.9 % (34.2-44.1); HEMOGLOBIN 12.7 g/dL (12.0-16.0); LYMPHOCYTES # (AUTO) 1.8 (1.0-3.2); MEAN CORPUSCULAR HEMOGLOBIN 29.3 pg (28-32); MEAN CORPUSCULAR HGB CONC 30.3 g/dL (31-35); MEAN CORPUSCULAR VOLUME 96.5 fL (81-99); MONOCYTES # (AUTO) 0.4 (0.2-0.8); MONOCYTES % 8.5 % (4.4-11.3); NEUTROPHILS # (AUTO) 2.4 (2.1-6.9); NEUTROPHILS % 51.2 % (38.7-80.0); PLATELET COUNT 135 x10e3/uL (140-360); RED BLOOD COUNT 4.34 x10e6/uL (3.6-5.1); RED CELL DISTRIBUTION WIDTH 13.5 % (11.7-14.4)
[~2019-07-01] MED LIST changes: +HYOSCYAMINE 0.125 MG TAB ONE; +LIDOCAINE HCL 2% LOCAL INJ 5 ML SDV VIAL INJ ONE; +MELOXICAM7.5 MG PO; +MIDAZOLAM HCL 2 MG/2 ML VIAL ONE; +PROPOFOL IV EMULSION 10 MG/ML 20 ML VIAL ONE; +PROZAC20 MG PO
[2019-07-01 11:45] VITALS: BP 137/71
--- NOTE | 2019-07-01 17:58 | Operative Report ---
DATE OF PROCEDURE: 07/01/2019 SURGEON: Loi Yen MD PROCEDURE: Colonoscopy note. REFERRING PHYSICIAN: Dr. Mima Rowe. INDICATIONS FOR COLONOSCOPY: Rectal bleeding. MEDICATIONS: The patient was done under MAC, please see anesthesiologist's note. PROCEDURE IN DETAIL: With the patient in left lateral decubitus position, a flexible fiberoptic Olympus colonoscope was inserted into the rectum with ease and advanced all the way to the cecum. Mucosa overlying the cecum appeared to be within normal limits. The ileocecal valve was intubated and the scope was advanced into the terminal ileum. The mucosa overlying the terminal ileum appeared to be within normal limits. The scope was then withdrawn back into the colon, it was then withdrawn slowly. Mucosa overlying the ascending, transverse, descending, sigmoid, and rectum grossly appeared to be within normal limits. The scope was then retroflexed into the distal rectum and small internal hemorrhoids were noted, none of which was actively bleeding. The scope was then straightened out, it was subsequently withdrawn. The patient tolerated the procedure well. IMPRESSION: Internal hemorrhoids, none actively bleeding. PLAN: Initiate high-fiber, low-fat diet. Initiate high-fiber supplement. Start Anucort-HC suppositories b.i.d. x10 days and p.r.n. The patient might benefit from a followup colonoscopy in 5 years. Loi Yen MD [facility] /[id number] cc: Dr. Mima Rowe
== END | disposition home or self-care (01) ==
LOC: OR 08:25
PROVIDERS: ATTEND Internal Medicine Gastroenterology
DX: K62.5 Hemorrhage of anus and rectum (principal); Z86.010 Personal history of colon polyps; Z88.2 Allergy status to sulfonamides; K20.9 Esophagitis, unspecified; K92.1 Melena; I10 Essential (primary) hypertension; R14.2 Eructation; E03.9 Hypothyroidism, unspecified; K21.9 Gastro-esophageal reflux disease without esophagitis; K58.9 Irritable bowel syndrome, unspecified; F32.9 Major depressive disorder, single episode, unspecified; K64.8 Other hemorrhoids
CPT/HCPCS: 36415; 45378; 85025; 93005; J2001; J2250

== ENCOUNTER → 2025-05-07 | Day surgery (SDC) | payer BC, MEDICARE ==
[2025-04-28 11:16] LABS: BASOPHILS % 0.6 % (0.0-1.0); EOSINOPHILS % 1.5 % (0.0-6.0); LYMPHOCYTES % 28.2 % (18.0-39.1); MONOCYTES % 8.8 % (4.4-11.3); NEUTROPHILS % 60.7 % (38.7-80.0); RED CELL DISTRIBUTION WIDTH 12.4 % (11.7-14.4)
[~2025-05-07] MED LIST changes: +CETIRIZINE HCL10 MG PO; +FENTANYL CITRATE/PF 100MCG/2 ML INJ ONE; +GLUCOSAMIN-CHO1 EACH PO; -HYOSCYAMINE 0.125 MG TAB ONE; -MIDAZOLAM HCL 2 MG/2 ML VIAL ONE; +MULTI-VITAMIN1 EACH PO; +ONDANSETRON HCL INJ 2MG/ML 2ML 2 MG/ML VIAL ONE; +PLAQUENIL200 MG PO; +SLEEP AID25 M1 PO; +VITAMIN D31250 MCG PO
[2025-05-07] MEDS: LACTATED RINGER'S 1,000 ML ONE (10:16)
[2025-05-07 12:37] VITALS: TEMP 97.1
[2025-05-07 13:00] VITALS: BP 118/63; PULSE 68; RESP 18; O2SAT 99
[2025-05-07 14:46] LABS: CDIFF AG QUIK CHEK NEGATIVE (NEGATIVE); CDIFF TOX QUIK CHEK NEGATIVE (NEGATIVE)
[2025-05-12 07:14] LABS: ENDOMYSIAL ANTIBODIES, IGA Negative (Negative)
[2025-05-12 07:21] LABS: TISSUE TRANSGLUTAMINASE IGA AB <2 U/mL (0-3)
== END | disposition home or self-care (01) ==
LOC: OR 09:09
PROVIDERS: ATTEND Internal Medicine Gastroenterology
DX: Z12.11 Encounter for screening for malignant neoplasm of colon (principal); K44.9 Diaphragmatic hernia without obstruction or gangrene; K20.90 Esophagitis, unspecified without bleeding; K31.89 Other diseases of stomach and duodenum; K57.30 Diverticulosis of large intestine without perforation or abscess without bleeding; K64.8 Other hemorrhoids; K62.89 Other specified diseases of anus and rectum; K58.9 Irritable bowel syndrome, unspecified; I42.9 Cardiomyopathy, unspecified; Z90.49 Acquired absence of other specified parts of digestive tract; Z79.890 Hormone replacement therapy; Z95.810 Presence of automatic (implantable) cardiac defibrillator; Z01.810 Encounter for preprocedural cardiovascular examination; Z01.812 Encounter for preprocedural laboratory examination
CPT/HCPCS: 36415; 43239; 43450; 45380; 82784; 83516; 83630; 83993; 85025; 86140; 86256; 87045; 87177; 87324; 87328; 87449; 93005; J2003; J2405; J2470; J2704; J3010; J7121; 45378